=== PATIENT | female | born 1965 | race Caucasian/White ===

== ENCOUNTER 2021-09-01 13:34 | Emergency (ER) | payer BC ==
[2021-09-01] MEDS ORDERED: Sodium Chloride 0.9% 10 ML Syringe FLUSH PRN (13:53)
[2021-09-01] MEDS ORDERED: Ketorolac 30 MG/ML SDV IVPUSH STA (13:57)
[2021-09-01] MEDS ORDERED: Ondansetron 4 MG/2 ML SDV IVPUSH STA (13:57)
[2021-09-01] MEDS ORDERED: Morphine 4 MG/ML VIAL IVPUSH STA (13:57)
[2021-09-01] MEDS ORDERED: Sodium Chloride 0.9% 1,000 ML IV SCH (14:00)
--- NOTE | 2021-09-01 14:03 | EDM.PDOC ---
ED HPI GENERAL MEDICAL PROBLEM - General Stated Complaint: CHEST PAIN,BACK PAIN, SOB Time Seen by Provider: 09/01/21 13:40 Source of Information: Reports: Patient, Family History Limitations: Reports: No Limitations - History of Present Illness INITIAL COMMENTS - FREE TEXT/NARRATIVE: Patient is a 56 YO F who presented to the ED because of chest pain and Abdominal pain. which started at about 0900. The chest pain is sharp,9/10 with associated N/V and dyspnea. The abdominal pain is more on the epigastric area,9/10, intermittent. She vomited at least 3 times today. There is no fever, chills, cough/cold symptoms, changes in bowel movements or UTI s/s. Abdomen Pain Score (Numeric/FACES): 7 - Related Data Allergies Allergy/AdvReac Type Severity Reaction Status Date / Time cephalexin Allergy Mild unknown Verified 01/10/15 02:06 codeine Allergy Mild unknown Verified 01/10/15 02:06 Home Meds: Home Meds Acetaminophen/HYDROcodone [HYDROcodone-Acetaminophen 5-325 MG *] 1 tab PO Q4H PRN #10 each 09/01/21 [Rx] Ondansetron [Zofran ODT] 4 mg PO Q4H PRN #5 tab.dis 09/01/21 [Rx] ED ROS GENERAL - Review of Systems Review Of Systems: See Below Constitutional: Reports: No Symptoms HEENT: Reports: No Symptoms Respiratory: Reports: Shortness of Breath Cardiovascular: Reports: Chest Pain Endocrine: Reports: No Symptoms GI/Abdominal: Reports: Abdominal Pain, Nausea, Vomiting : Reports: No Symptoms Musculoskeletal: Reports: No Symptoms Skin: Reports: No Symptoms Neurological: Reports: No Symptoms Psychiatric: Reports: No Symptoms Hematologic/Lymphatic: Reports: No Symptoms ED EXAM, GENERAL - Physical Exam Exam: See Below Exam Limited By: No Limitations General Appearance: Alert, No Apparent Distress Eye Exam: Bilateral Eye: PERRL Ears: Normal External Exam, Normal Canal Nose: Normal Inspection, Normal Mucosa, No Blood Throat/Mouth: Normal Inspection, Normal Lips, Normal Teeth, Normal Gums Head: Atraumatic, Normocephalic Neck: Normal Inspection, Supple, Non-Tender, Full Range of Motion Respiratory/Chest: No Respiratory Distress, Lungs Clear, Normal Breath Sounds, No Accessory Muscle Use, Chest Non-Tender Cardiovascular: Normal Peripheral Pulses, Regular Rate, Rhythm, No Edema, No JVD, No Murmur, No Rub GI/Abdominal: Normal Bowel Sounds, Soft, No Organomegaly, No Distention, No Abnormal Bruit, Other (epigastric tenderness, no rebound or guarding) Back Exam: Normal Inspection, Full Range of Motion Extremities: Normal Inspection, Normal Range of Motion, Non-Tender, No Pedal Edema, Normal Capillary Refill Neurological: Alert, Oriented, CN II-XII Intact, Normal Cognition Psychiatric: Normal Affect #1 Interpretation EKG Date: 09/01/21 Time: 13:42 Rhythm: NSR Rate (Beats/Min): 96 Sawyer: Normal P-Wave: Present QRS: Normal ST-T: Normal QT: Normal NH/PQ Interval: 133 Comparison: NA - No Prior EKG EKG Interpretation Comments: NSR Course - Vital Signs Text/Narrative:: Lab/Chest and abd/pelvis CT result was reviewed and discussed with patient NS 1 L bolus Maalox-doses PO Reglan 4 mg IV x1 Zofran 4 mg IV x1 Toradol 30 mg IV x1 Morphine 4 mg IV x1 Last Recorded V/S: Last Vital Signs Temp 36.8 C 09/01/21 13:34 Pulse 98 09/01/21 13:34 Resp 24 H 09/01/21 13:34 BP 159/112 H 09/01/21 13:34 Pulse Ox 95 09/01/21 13:34 - Orders/Labs/Meds Orders: Active Orders 24 hr Category Date Time Status Abdomen Pelvis w Cont [CT] Stat Exams 09/01/21 13:55 Taken Ang Chest [CT] Stat Exams 09/01/21 15:01 Taken Sodium Chloride 0.9% [Normal Saline] 1,000 ml Med 09/01/21 14:00 Active IV ASDIRECTED Sodium Chloride 0.9% [Saline Flush] Med 09/01/21 13:53 Active 10 ml FLUSH ASDIRECTED PRN Saline Lock Insert [OM.PC] Routine Oth 09/01/21 13:53 Ordered EKG 12 Lead [EK] Routine Ther 09/01/21 13:55 Ordered Medication Orders Sodium Chloride (Normal Saline) 1,000 mls @ 999 mls/hr IV ASDIRECTED DONNIE Last Admin: 09/01/21 13:59 Dose: 999 mls/hr Documented by: YING Sodium Chloride (Sodium Chloride 0.9% 10 Ml Syringe) 10 ml FLUSH ASDIRECTED PRN PRN Reason: Keep Vein Open Last Admin: 09/01/21 13:53 Dose: 10 ml Documented by: YING Labs: Laboratory Tests 09/01/21 09/01/21 09/01/21 Range/Units 14:11 14:11 14:11 WBC 12.2 H (3.0-10.3) x10-3/uL RBC 4.69 (3.60-5.20) x10(6)uL Hgb 13.4 (11.4-15.5) g/dL Hct 40.8 (34.2-48.2) % MCV 86.9 (76.7-100.5) fL MCH 28.6 (23.9-33.9) pg MCHC 32.9 (31.9-34.8) g/dL RDW 12.9 (12.3-16.5) % Plt Count 238 (151-488) x10(3)uL MPV 7.8 (7.1-12.4) fL Neut % (Auto) 83.8 H (30.8-76.2) % Lymph % (Auto) 11.0 L (18.4-52.1) % Rapides % (Auto) 3.7 L (4.4-15.7) % Eos % (Auto) 0.7 (0.6-8.1) % Baso % (Auto) 0.8 (0.2-1.5) % Neut # (Auto) 10.2 H (1.5-6.3) x10-3/uL Lymph # (Auto) 1.4 (1.0-4.4) x10-3/uL Rapides # (Auto) 0.5 (0.3-1.0) x10-3/uL Eos # (Auto) 0.1 (0.0-0.8) x10-3/uL Baso # (Auto) 0.1 (0.0-0.1) x10-3/uL D-Dimer, Quantitative (0.0-0.59) mg/LFEU Sodium 137 (135-145) mmol/L Potassium 4.2 (3.5-5.3) mmol/L Chloride 102 (100-110) mmol/L Carbon Dioxide 26 (21-32) mmol/L BUN 8 (7-18) mg/dL Creatinine 1.0 (0.55-1.02) mg/dL Est Cr Clr Drug Dosing TNP Estimated GFR (MDRD) 57 L (>60) BUN/Creatinine Ratio 8.0 L (9-20) Glucose 114 (80-116) mg/dL Calcium 8.8 (8.6-10.2) mg/dL Total Bilirubin 0.4 (0.1-1.3) mg/dL AST 24 (5-25) IU/L ALT 42 H (12-36) U/L Alkaline Phosphatase 96 (56-112) IU/L Troponin I (4.0-60.3) pg/mL Total Protein 7.4 (6.0-8.0) g/dL Albumin 3.9 (3.5-5.2) g/dL Globulin 3.5 g/dL Albumin/Globulin Ratio 1.1 Amylase 41 (25-115) U/L Lipase 63 L (73-393) U/L Urine Color (YELLOW) Urine Appearance (CLEAR) Urine pH (5.0-6.5) Ur Specific Gracey (1.010-1.025) Urine Protein (NEGATIVE) mg/dL Urine Glucose (UA) (NORMAL) mg/dL Urine Ketones (NEGATIVE) mg/dL Urine Occult Blood (NEGATIVE) Urine Nitrite (NEGATIVE) Urine Bilirubin (NEGATIVE) Urine Urobilinogen (NEGATIVE) mg/dL Ur Leukocyte Esterase (NEGATIVE) Urine RBC (0-5) Urine WBC (0-5) Ur Squamous Epith Cells (NS,R,O) Urine Bacteria (NS) 09/01/21 09/01/21 09/01/21 Range/Units 14:11 14:11 15:24 WBC (3.0-10.3) x10-3/uL RBC (3.60-5.20) x10(6)uL Hgb (11.4-15.5) g/dL Hct (34.2-48.2) % MCV (76.7-100.5) fL MCH (23.9-33.9) pg MCHC (31.9-34.8) g/dL RDW (12.3-16.5) % Plt Count (151-488) x10(3)uL MPV (7.1-12.4) fL Neut % (Auto) (30.8-76.2) % Lymph % (Auto) (18.4-52.1) % Rapides % (Auto) (4.4-15.7) % Eos % (Auto) (0.6-8.1) % Baso % (Auto) (0.2-1.5) % Neut # (Auto) (1.5-6.3) x10-3/uL Lymph # (Auto) (1.0-4.4) x10-3/uL Rapides # (Auto) (0.3-1.0) x10-3/uL Eos # (Auto) (0.0-0.8) x10-3/uL Baso # (Auto) (0.0-0.1) x10-3/uL D-Dimer, Quantitative 1.12 H (0.0-0.59) mg/LFEU Sodium (135-145) mmol/L Potassium (3.5-5.3) mmol/L Chloride (100-110) mmol/L Carbon Dioxide (21-32) mmol/L BUN (7-18) mg/dL Creatinine (0.55-1.02) mg/dL Est Cr Clr Drug Dosing Estimated GFR (MDRD) (>60) BUN/Creatinine Ratio (9-20) Glucose (80-116) mg/dL Calcium (8.6-10.2) mg/dL Total Bilirubin (0.1-1.3) mg/dL AST (5-25) IU/L ALT (12-36) U/L Alkaline Phosphatase (56-112) IU/L Troponin I 9.7 (4.0-60.3) pg/mL Total Protein (6.0-8.0) g/dL Albumin (3.5-5.2) g/dL Globulin g/dL Albumin/Globulin Ratio Amylase (25-115) U/L Lipase (73-393) U/L Urine Color Yellow (YELLOW) Urine Appearance Clear (CLEAR) Urine pH 6.5 (5.0-6.5) Ur Specific Gracey 1.010 (1.010-1.025) Urine Protein Negative (NEGATIVE) mg/dL Urine Glucose (UA) Normal (NORMAL) mg/dL Urine Ketones Negative (NEGATIVE) mg/dL Urine Occult Blood Negative (NEGATIVE) Urine Nitrite Negative (NEGATIVE) Urine Bilirubin Negative (NEGATIVE) Urine Urobilinogen Normal (NEGATIVE) mg/dL Ur Leukocyte Esterase Negative (NEGATIVE) Urine RBC 0-5 (0-5) Urine WBC 0-5 (0-5) Ur Squamous Epith Cells Few H (NS,R,O) Urine Bacteria Rare H (NS) Meds: Medications Generic Name Dose Route Start Last Admin Trade Name Freq PRN Reason Stop Dose Admin Sodium Chloride 1,000 mls @ 999 mls/hr 09/01/21 14:00 09/01/21 13:59 Normal Saline IV 999 mls/hr ASDIRECTED DONNIE Administration Sodium Chloride 10 ml 09/01/21 13:53 09/01/21 13:53 Sodium Chloride 0.9% 10 Ml Syringe FLUSH 10 ml ASDIRECTED PRN Administration Keep Vein Open Discontinued Medications Generic Name Dose Route Start Last Admin Trade Name Hectorq PRN Reason Stop Dose Admin Al Hydroxide/Mg Hydroxide 60 ml 09/01/21 14:47 09/01/21 14:57 Aluminum Hydroxide/Magnesium Hydroxide Susp 30 Ml Cup PO 09/01/21 14:48 60 ml Q4H ONE Administration Al Hydroxide/Mg Hydroxide 15 0 ml 09/01/21 14:17 09/01/21 16:03 ml/ Lidocaine HCl 15 ml PO 09/01/21 14:18 Not Given ONETIME ONE Iopamidol 130 ml 09/01/21 15:07 09/01/21 15:25 Iopamidol 755 Mg/Ml 150 Ml Bottle IV 09/01/21 15:08 130 ml ONETIME ONE Administration Ketorolac Tromethamine 30 mg 09/01/21 13:57 09/01/21 14:12 Ketorolac 30 Mg/Ml Sdv IVPUSH 09/01/21 13:58 30 mg NOW STA Administration Metoclopramide HCl 10 mg 09/01/21 14:17 09/01/21 14:39 Metoclopramide 10 Mg/2 Ml Sdv IVPUSH 09/01/21 14:18 10 mg NOW STA Administration Morphine Sulfate 4 mg 09/01/21 13:57 09/01/21 14:12 Morphine 4 Mg/Ml Vial IVPUSH 09/01/21 13:58 4 mg NOW STA Administration Ondansetron HCl 4 mg 09/01/21 13:57 09/01/21 14:12 Ondansetron 4 Mg/2 Ml Sdv IVPUSH 09/01/21 13:58 4 mg NOW STA Administration Departure - Departure Time of Disposition: 17:00 Disposition: Home, Self-Care 01 Condition: Good Clinical Impression: Cholelithiasis - Discharge Information Prescriptions: Acetaminophen/HYDROcodone [HYDROcodone-Acetaminophen 5-325 MG *] 1 tab PO Q4H PRN #10 each PRN Reason: Pain Ondansetron [Zofran ODT] 4 mg PO Q4H PRN #5 tab.dis PRN Reason: Nausea Instructions: Cholelithiasis, [id number] Referrals: Ruby Rodarte HEAD SAWYER [Primary Care Provider] - Additional Instructions: Please read discharge instructions on gallstones Avoid greasy , creamy, and spicy foods Zofran ODT every 4 hours as needed for nausea Hydrocodone 5 mg, 1-2 tablets every 4-6 hours as needed for pain Follow up with your doctor this week to discuss treatment options for your gallstones Sepsis Event Note (ED) - Focused Exam Vital Signs: Vital Signs Temp Pulse Resp BP Pulse Ox 09/01/21 13:34 36.8 C 98 24 H 159/112 H 95 - My Orders Last 24 Hours: My Active Orders 09/01/21 13:53 Sodium Chloride 0.9% [Saline Flush] 10 ml FLUSH ASDIRECTED PRN Saline Lock Insert [OM.PC] Routine 09/01/21 13:55 Abdomen Pelvis w Cont [CT] Stat EKG 12 Lead [EK] Routine 09/01/21 14:00 Sodium Chloride 0.9% [Normal Saline] 1,000 ml IV ASDIRECTED 09/01/21 15:01 Ang Chest [CT] Stat - Assessment/Plan Last 24 Hours: My Active Orders 09/01/21 13:53 Sodium Chloride 0.9% [Saline Flush] 10 ml FLUSH ASDIRECTED PRN Saline Lock Insert [OM.PC] Routine 09/01/21 13:55 Abdomen Pelvis w Cont [CT] Stat EKG 12 Lead [EK] Routine 09/01/21 14:00 Sodium Chloride 0.9% [Normal Saline] 1,000 ml IV ASDIRECTED 09/01/21 15:01 Ang Chest [CT] Stat
[2021-09-01] MEDS ORDERED: Metoclopramide 10 MG/2 ML SDV IVPUSH STA (14:17)
[2021-09-01 14:37] VITALS: BP 159/112; PULSE 98
[2021-09-01] MEDS: Alum Hydroxide/Mag Hydroxide 15 ML, Lidocaine 2% 15 ML PO ONE ×4 (14:39→16:03)
[2021-09-01] MEDS ORDERED: Aluminum Hydroxide/Magnesium Hydroxide Susp 30 ML Cup PO ONE (14:47)
[2021-09-01] MEDS ORDERED: Iopamidol 755 MG/ML 150 ML Bottle IV ONE (15:07)
== END 2021-09-01 17:10 | disposition home or self-care (01) ==
LOC: FB.ED 13:34 → SUPCPDRO 13:34 → FB.ED 17:10
DX: K80.20 Calculus of gallbladder without cholecystitis without obstruction (principal); Z88.1 Allergy status to other antibiotic agents; Z88.5 Allergy status to narcotic agent
CPT/HCPCS: 36415; 71275; 74177; 80053; 81001; 82150; 83690; 84484; 85025; 85379; 93005; 96374; 96375; 99285-25; A9270-GY; J1885; J2270; J2405; J2765; J7030; Q9967

== ENCOUNTER 2021-09-07 08:20 | Day surgery (SDC) | payer BC ==
[~2021-09-07 08:20] MED LIST: Acetaminophen 500 MG Tab PO ONE; Albuterol/Ipratropium 3.0-0.5 MG/3 ML Neb Soln NEB ONE; Ondansetron 8 MG Tab.DIS PO ONE
[2021-09-07] MEDS ORDERED: Glycopyrrolate 0.2 MG/ML 5 ML MDV IV ONE (08:21)
[2021-09-07] MEDS ORDERED: Lactated Ringers 1,000 ML IV ONE (08:21)
[2021-09-07] MEDS ORDERED: Scopolamine 1 MG Transdermal Patch TOP ONE (08:21)
[2021-09-07] MEDS ORDERED: diphenhydrAMINE 50 MG/ML SDV IVPUSH ONE (08:21)
[2021-09-07] MEDS ORDERED: Dexmedetomidine 200 MCG/2 ML SDV IV ONE (08:21)
[2021-09-07] MEDS ORDERED: Ketorolac 30 MG/ML SDV IVPUSH ONE (08:21)
[2021-09-07] MEDS ORDERED: Promethazine 25 MG/ML SDV IV ONE (08:21)
[2021-09-07] MEDS ORDERED: Midazolam 1 MG/ML 2 ML SDV IV ONE (08:21)
[2021-09-07] MEDS ORDERED: Dexamethasone 4 MG/ML 5 ML MDV IVPUSH ONE (08:21)
[2021-09-07] MEDS ORDERED: Ondansetron 4 MG/2 ML SDV IVPUSH ONE (08:21)
[2021-09-07] MEDS ORDERED: Rocuronium 100 MG/10 ML MDV IV ONE (08:21)
[2021-09-07] MEDS ORDERED: Propofol 200 MG/20 ML SDV IV ONE (08:21)
[2021-09-07] MEDS ORDERED: fentaNYL 100 MCG/2 ML SDV IV ONE (08:21)
[2021-09-07] MEDS ORDERED: Succinylcholine 200 MG/10 ML MDV IV ONE (08:21)
[2021-09-07] MEDS ORDERED: Neostigmine Methylsulfate 10 MG/10 ML MDV IVPUSH ONE (08:21)
[2021-09-07] MEDS ORDERED: Sodium Chloride 0.9% 10 ML Syringe FLUSH PRN (08:30)
[2021-09-07] MEDS ORDERED: Lactated Ringers 1,000 ML IV SCH (08:30)
--- NOTE | 2021-09-07 11:00 | PCM.HPR ---
H & P Addendum review - H & P Addendum Review Date of Original H & P: 09/03/21 Date Reviewed: 09/07/21 Time Reviewed: 10:35 Patient was Examined: No Changes
[2021-09-07] MEDS ORDERED: Lidocaine 1% with EPINEPHrine 1:100,000 20 ML MDV INJECT ONE (11:20)
--- NOTE | 2021-09-07 12:24 | PCM.OPNOTE ---
- General Post-Op/Procedure Note Date of Surgery/Procedure: 09/07/21 Operative Procedure(s): Lap Hoa Findings: Cholecystitis and Cholelithiasis Pre Op Diagnosis: Same Post-Op Diagnosis: Same Anesthesia Technique: General ET Tube Primary Surgeon: Noah Lay Anesthesia Provider: Monserrat Castaneda Pathology: GB EBL in mLs: 10 Complications: None Condition: Good
[2021-09-07] MEDS ORDERED: Acetaminophen/HYDROcodone 325-5 MG Tab PO PRN (12:44)
[2021-09-07 14:36] VITALS: BP 113/68; PULSE 74
--- NOTE | 2021-09-08 08:07 | OR ---
DATE OF OPERATION: 09/07/2021 SURGEON: Noah Lay MD PREOPERATIVE DIAGNOSES: Cholecystitis and cholelithiasis. POSTOPERATIVE DIAGNOSIS: Cholecystitis and cholelithiasis. PROCEDURE: Laparoscopic cholecystectomy. ANESTHESIA: General. PROCEDURE IN DETAIL: The patient was brought to the operating room where general endotracheal anesthesia was administered. A time-out was performed. The abdomen was prepped and draped sterilely. An infraumbilical incision was made and extended into the peritoneal cavity. 0 Vicryl stay sutures were placed on each side of the umbilical incision. On the right side, a loop of jejunum was adjacent and caught the serosa. This area was inspected and no damage was present. The Dimitrios cannulator was introduced and pneumoperitoneum obtained. The remaining three 5 mm ports were placed in the usual positions. The patient was placed in reverse Trendelenburg position and rotated to the left. The gallbladder had omental adhesions stuck to its fundus that were taken down with blunt and sharp dissection to expose the gallbladder. This was then retracted cephalad. Cystic duct and cystic artery were dissected free with minimal difficulty. Gallbladder was quite long and edematous. I was able to doubly clip the cystic artery proximally and once distally and then transected. This aided in visualization of the cystic duct which could then be seen entering the gallbladder and extending towards the common bile duct. The lower portion of the gallbladder was dissected free and anatomy reconfirmed. The cystic duct was then doubly clipped proximally and once distally and then transected. There was a posterior branch of the cystic artery that was doubly clipped proximally and cauterized distally. Gallbladder was removed from the bed of the liver using electrocautery. No bleeding or bile leakage occurred. The gallbladder was brought out through the umbilical incision site. The right upper quadrant was inspected and irrigated and return was clear and hemostasis assured. The small bowel adjacent to the umbilical site was reinspected and appeared normal. Ports were removed under direct vision and remained hemostatic. Umbilical fascia was closed with [id number] 0 Vicryl. The skin was closed with 4-0 Vicryl subcuticular sutures. Benzoin and Steri-Strips were placed and Band-Aids applied. The patient tolerated the procedure well. Estimated blood loss 10 mL. She returned to postanesthesia in stable condition. /[id number] FLY/PADMINI
== END 2021-09-07 14:24 | disposition home or self-care (01) ==
LOC: FB.SDS 08:20
PROVIDERS: ATTEND Surgery
DX: K80.10 Calculus of gallbladder with chronic cholecystitis without obstruction (principal); J44.9 Chronic obstructive pulmonary disease, unspecified; E66.01 Morbid (severe) obesity due to excess calories; Z79.899 Other long term (current) drug therapy; Z87.891 Personal history of nicotine dependence; Z68.39 Body mass index [BMI] 39.0-39.9, adult; Z88.8 Allergy status to other drugs, medicaments and biological substances; Z88.5 Allergy status to narcotic agent; Z91.040 Latex allergy status
CPT/HCPCS: 00790-QZ; 88304; 94640; A9270-GY; J0330; J1100; J1200; J1885; J2250; J2405; J2550; J2704; J2710; J3010; J3490; J7120; J7620-GY